=== PATIENT | female | born 1945 | race Caucasian/White ===

== ENCOUNTER 2024-08-14 23:24 | Inpatient (IN) | payer MEDICARE ==
[~2024-08-14] VITALS: Ht 147.3 cm; Wt 38.6 kg
[2024-08-15 00:08] LABS: BASOPHILS # (AUTO) 0.1 K/uL (0.0-0.2); BASOPHILS % (AUTO) 1.2 % (0.0-2.0); EOSINOPHILS % (AUTO) 12.7 % (0.0-6.0); HEMATOCRIT 33 % (33-45); HEMOGLOBIN 10.6 g/dL (11.5-14.8); LYMPHOCYTES # (AUTO) 2.9 K/uL (0.8-4.8); LYMPHOCYTES % (AUTO) 37.1 % (20.0-44.0); MEAN CORPUSCULAR HEMOGLOBIN 28 PG (26.0-33.0); MEAN CORPUSCULAR HGB CONC 32 g/dl (31.0-36.0); MEAN CORPUSCULAR VOLUME 86 fL (82-100); MONOCYTES # (AUTO) 0.6 K/uL (0.1-1.30); NEUTROPHILS # (AUTO) 3.2 K/uL (1.8-8.9); PLATELET COUNT (AUTO) 335 K/uL (150-450); RED BLOOD CELL COUNT(AUTO) 3.83 MIL/uL (4.0-5.2); WHITE BLOOD COUNT (AUTO) 7.7 K/uL (4.3-11.0)
[2024-08-15 00:15] LABS: CALCIUM, SERUM 8.8 mg/dL (8.5-10.1); CARBON DIOXIDE 31 mmol/L (21-32); CHLORIDE 103 mmol/L (98-107); CREATININE 0.6 mg/dL (0.6-1.3); GLUCOSE 98 mg/dL (74-106); SODIUM SERUM 137 mmol/L (136-145); UREA NITROGEN, BLOOD 23 mg/dL (7-18)
[2024-08-15 00:21] LABS: ALANINE AMINOTRANSFERASE 18 U/L (12-78); ALBUMIN 2.6 g/dL (3.4-5.0); ALKALINE PHOSPHATASE 54 U/L (46-116); ASPARTATE AMINOTRANSFERASE 15 U/L (15-37); BILIRUBIN,DIRECT 0.1 mg/dL (0.0-0.2); BILIRUBIN,TOTAL 0.2 mg/dL (0.2-1.0); LIPASE 49 U/L (16-77); TOTAL PROTEIN, SERUM 7.4 g/dL (6.4-8.2)
[2024-08-15 00:24] LABS: INR 1.03 (0.91-1.10); PARTIAL THROMBOPLASTIN TIME 29.8 SEC (24.3-34.3); PROTHROMBIN TIME 10.9 SECS (9.2-11.1)
[2024-08-15 00:40] LABS: APPEARANCE,URINE CLEAR (CLEAR); BILIRUBIN,URINE NEGATIVE (NEGATIVE); BLOOD, URINE TRACE-INTA Ery/uL (NEGATIVE); COLOR,URINE YELLOW (YELLOW); KETONES,URINE NEGATIVE (NEGATIVE); LEUKOCYTE ESTERASE ,URINE 3+ (NEGATIVE); NITRITE, URINE POSITIVE (NEGATIVE); PROTEIN,URINE NEGATIVE (NEGATIVE); UGLUCOSE NEGATIVE (NEGATIVE); UROBILINOGEN,URINE 0.2 EU/dL (0.2)
[2024-08-15] MEDS ORDERED: CEFTRIAXONE 1GM BAG (ER ONLY) 50 ML IV ONE (00:51)
[2024-08-15] MEDS: CEFTRIAXONE 1GM BAG (ER ONLY) 1 GM/50 ML PIGGYBACK IV ONE (00:53)
[2024-08-15] MEDS ORDERED: MINERAL OIL 133 ML (PYXIS) 1 EA ENEMA RC ONE (00:56)
[2024-08-15 01:14] LABS: ADD URINE CULTURE YES; BACTERIA,URINE 3+ /HPF (None Seen)
[2024-08-15] MEDS ORDERED: Z GUARD REMEDY 4 OZ OINT TP PRN (01:30)
[2024-08-15] MEDS ORDERED: ONDANSETRON HCL/PF 4 MG/2 ML VIAL IVP PRN (01:30)
[2024-08-15] MEDS: MINERAL OIL 133 ML (PYXIS) 1 EA ENEMA RC ONE (01:35)
[2024-08-15 03:00] VITALS: BP 114/62; TEMP 97.5; O2SAT 98
[2024-08-15] MEDS: IV NS 0.9% 1,000 ML IV ONE (04:43)
[2024-08-15 06:37] LABS: BASOPHILS % (AUTO) 0.5 % (0.0-2.0); EOSINOPHILS % (AUTO) 11.2 % (0.0-6.0); HEMATOCRIT 32 % (33-45); HEMOGLOBIN 10.4 g/dL (11.5-14.8); LYMPHOCYTES # (AUTO) 2.4 K/uL (0.8-4.8); LYMPHOCYTES % (AUTO) 27.5 % (20.0-44.0); MEAN CORPUSCULAR HEMOGLOBIN 28 PG (26.0-33.0); MEAN CORPUSCULAR HGB CONC 33 g/dl (31.0-36.0); MEAN CORPUSCULAR VOLUME 87 fL (82-100); MONOCYTES # (AUTO) 0.6 K/uL (0.1-1.30); MONOCYTES % (AUTO) 7.3 % (2.0-12.0); NEUTROPHILS # (AUTO) 4.6 K/uL (1.8-8.9); NEUTROPHILS % (AUTO) 53.5 % (43.0-81.0); PLATELET COUNT (AUTO) 334 K/uL (150-450); RED BLOOD CELL COUNT(AUTO) 3.71 MIL/uL (4.0-5.2); RED CELL DISTRIBUTION WIDTH 15.1 % (11.5-15.0); WHITE BLOOD COUNT (AUTO) 8.7 K/uL (4.3-11.0)
[2024-08-15] MEDS ORDERED: CHOL200038 PO (07:18)
[2024-08-15] MEDS ORDERED: CYAN25003 SL (07:18)
[2024-08-15] MEDS ORDERED: LEVO100T9 PO (07:18)
[2024-08-15] MEDS ORDERED: RISP0.5T65 PO (07:18)
[2024-08-15] MEDS ORDERED: MAGN400T26 PO (07:18)
[2024-08-15] MEDS ORDERED: ASCO-352 PO (07:18)
[2024-08-15] MEDS ORDERED: OMEG-130 PO (07:18)
[2024-08-15] MEDS ORDERED: MULT-594 PO (07:18)
[2024-08-15 07:28] LABS: CALCIUM, SERUM 8.9 mg/dL (8.5-10.1); CARBON DIOXIDE 32 mmol/L (21-32); CREATININE 0.6 mg/dL (0.6-1.3); GLUCOSE 84 mg/dL (74-106); MAGNESIUM 1.9 mg/dL (1.8-2.4); PHOSPHORUS 3.9 mg/dL (2.5-4.9); UREA NITROGEN, BLOOD 19 mg/dL (7-18)
[2024-08-15 08:24] VITALS: BP 95/77; TEMP 97.9; O2SAT 100
[2024-08-15] MEDS ORDERED: ENOX40DI SQ (08:24)
[2024-08-15] MEDS ORDERED: CRAN300T PO (08:24)
[2024-08-15] MEDS ORDERED: LACT10SO29 PO (08:24)
[2024-08-15] MEDS ORDERED: CALC500T53 PO (08:24)
[2024-08-15] MEDS ORDERED: ACET-73 PO (08:24)
[2024-08-15] MEDS ORDERED: BISA5TAB10 PO (08:24)
[2024-08-15] MEDS ORDERED: MULT-213 PO (08:24)
[2024-08-15] MEDS ORDERED: BISA10SU11 RC (08:24)
[2024-08-15] MEDS ORDERED: AMIN30LI66 PO (08:24)
[2024-08-15] MEDS ORDERED: ACID1TAB15 PO (08:24)
[2024-08-15] MEDS ORDERED: LACT-58 PO (08:24)
[2024-08-15] MEDS ORDERED: GLYC2TAB21 PO (08:24)
[2024-08-15] MEDS ORDERED: HYDR-4303 PO (08:24)
[2024-08-15 08:27] LABS: CHLORIDE 105 mmol/L (98-107); POTASSIUM 4.3 mmol/L (3.5-5.1); SODIUM SERUM 141 mmol/L (136-145)
[2024-08-15] MEDS ORDERED: ZINC220C6 PO (08:28)
[2024-08-15] MEDS: DAKINS QUARTER STRENGTH (0.125%) 480 ML BOTTLE TOP SCH (09:02)
[2024-08-15] MEDS: HEPARIN SODIUM, PORCINE 5000 UNITS/1 ML VIAL SQ SCH (09:54)
[2024-08-15] MEDS ORDERED: GLYCOPYRROLATE 1 MG TABLET PO PRN (10:00)
[2024-08-15] MEDS: DOCUSATE SODIUM LIQ 100 MG/10 ML UDC PO SCH (10:00)
[2024-08-15] MEDS: POLYETHYLENE GLYCOL 3350 17 GM POWD.PACK PO SCH (10:00)
[2024-08-15] MEDS: ACETAMINOPHEN 650 MG/SUPP.RECT RC PRN (13:27)
[2024-08-15] MEDS: LACTULOSE 10 G/15 ML UDC (PYXIS) PO PRN (14:52)
[2024-08-15 16:00] VITALS: BP 140/77; TEMP 98.1; O2SAT 99
[2024-08-15] MEDS: LACTOSE-FREE FOOD 237 ML BOTTLE PO SCH (17:00)
[2024-08-15 20:00] VITALS: BP 124/80; TEMP 98.1; O2SAT 99
[2024-08-16] MEDS: CEFTRIAXONE 1 G in IV D5W 50 ML IV SCH (00:34)
[2024-08-16] MEDS: LEVOTHYROXINE SODIUM 100 MCG TABLET PO SCH (07:56)
[2024-08-16] MEDS ORDERED: ENSURE ENLIVE 237 ML LIQUID (VANILLA) PO SCH (09:30)
[2024-08-16 09:57] LABS: BASOPHILS # (AUTO) 0.1 K/uL (0.0-0.2); EOSINOPHILS # (AUTO) 0.9 K/uL (0.0-0.7); EOSINOPHILS % (AUTO) 9.3 % (0.0-6.0); HEMATOCRIT 36 % (33-45); HEMOGLOBIN 11.4 g/dL (11.5-14.8); LYMPHOCYTES % (AUTO) 19.9 % (20.0-44.0); MEAN CORPUSCULAR HEMOGLOBIN 28 PG (26.0-33.0); MEAN CORPUSCULAR HGB CONC 32 g/dl (31.0-36.0); MEAN CORPUSCULAR VOLUME 87 fL (82-100); MONOCYTES # (AUTO) 0.6 K/uL (0.1-1.30); MONOCYTES % (AUTO) 6.1 % (2.0-12.0); NEUTROPHILS # (AUTO) 6.5 K/uL (1.8-8.9); NEUTROPHILS % (AUTO) 63.7 % (43.0-81.0); PLATELET COUNT (AUTO) 376 K/uL (150-450); RED CELL DISTRIBUTION WIDTH 15.4 % (11.5-15.0); WHITE BLOOD COUNT (AUTO) 10.2 K/uL (4.3-11.0)
[2024-08-16 10:08] LABS: CALCIUM, SERUM 8.7 mg/dL (8.5-10.1); CARBON DIOXIDE 29 mmol/L (21-32); CHLORIDE 107 mmol/L (98-107); CREATININE 0.7 mg/dL (0.6-1.3); GLUCOSE 161 mg/dL (74-106); POTASSIUM 4.1 mmol/L (3.5-5.1); SODIUM SERUM 140 mmol/L (136-145); UREA NITROGEN, BLOOD 16 mg/dL (7-18)
[2024-08-16] MEDS: ENSURE ENLIVE 237 ML LIQUID (VANILLA) PO SCH (12:11)
[2024-08-16 20:00] VITALS: BP 122/92; TEMP 99; O2SAT 93
[2024-08-16] MEDS: MUPIROCIN OINT 2% 22 GM TUBE NS SCH (21:09)
[2024-08-17 04:53] VITALS: BP 133/80
[2024-08-17 06:32] LABS: BASOPHILS # (AUTO) 0.1 K/uL (0.0-0.2); BASOPHILS % (AUTO) 0.9 % (0.0-2.0); EOSINOPHILS # (AUTO) 0.7 K/uL (0.0-0.7); EOSINOPHILS % (AUTO) 5.6 % (0.0-6.0); HEMATOCRIT 35 % (33-45); LYMPHOCYTES # (AUTO) 2.2 K/uL (0.8-4.8); LYMPHOCYTES % (AUTO) 17.3 % (20.0-44.0); MEAN CORPUSCULAR HEMOGLOBIN 27 PG (26.0-33.0); MEAN CORPUSCULAR HGB CONC 32 g/dl (31.0-36.0); MEAN CORPUSCULAR VOLUME 87 fL (82-100); MONOCYTES # (AUTO) 0.9 K/uL (0.1-1.30); MONOCYTES % (AUTO) 6.7 % (2.0-12.0); NEUTROPHILS # (AUTO) 9.1 K/uL (1.8-8.9); NEUTROPHILS % (AUTO) 69.5 % (43.0-81.0); PLATELET COUNT (AUTO) 371 K/uL (150-450); RED BLOOD CELL COUNT(AUTO) 4.03 MIL/uL (4.0-5.2); RED CELL DISTRIBUTION WIDTH 15.1 % (11.5-15.0)
[2024-08-17 06:40] LABS: CALCIUM, SERUM 8.8 mg/dL (8.5-10.1); CARBON DIOXIDE 24 mmol/L (21-32); CHLORIDE 104 mmol/L (98-107); CREATININE 0.7 mg/dL (0.6-1.3); GLUCOSE 116 mg/dL (74-106); POTASSIUM 4.2 mmol/L (3.5-5.1); SODIUM SERUM 138 mmol/L (136-145); UREA NITROGEN, BLOOD 23 mg/dL (7-18)
[2024-08-17 07:00] VITALS: BP 137/48; TEMP 98.1; O2SAT 98
[2024-08-17 16:00] VITALS: BP 122/110; TEMP 99.1; O2SAT 98
[2024-08-17 20:00] VITALS: BP 140/87; TEMP 98.4; O2SAT 97
[2024-08-18 08:00] VITALS: BP 130/80; TEMP 98.4
[2024-08-18] MEDS: CEFTRIAXONE 1 G in IV D5W 50 ML IV ONE (12:06)
== END 2024-08-18 16:50 | DRG 689 ==
LOC: ER 08-15 00:14 → TELE 08-15 02:19 → MED 08-15 03:06
PROVIDERS: ATTEND Internal Medicine
DX: N39.0 Urinary tract infection, site not specified (principal); G93.41 Metabolic encephalopathy; L89.324 Pressure ulcer of left buttock, stage 4; L89.154 Pressure ulcer of sacral region, stage 4; K59.00 Constipation, unspecified; D64.9 Anemia, unspecified; E03.9 Hypothyroidism, unspecified; I12.9 Hypertensive chronic kidney disease with stage 1 through stage 4 chronic kidney disease, or unspecified chronic kidney disease; N18.30 Chronic kidney disease, stage 3 unspecified
CPT/HCPCS: 36415; 71045-TC; 80048-TC; 80076-TC; 81001; 82962-TC; 83690-TC; 83735-TC; 84100-TC; 84443-TC; 84484-TC; 85025-TC; 85730-TC; 87081-TC; 87086-TC; 92526; 92611-TC; A4223; A6253; A6407; G0378; J0696; J1644; J7030; J7060

== ENCOUNTER 2025-01-27 07:49 | Inpatient (IN) | payer MEDICARE ==
[2025-01-27] VITALS (25 sets, daily range): BP systolic 94–223; BP diastolic 39–200; TEMP 98.2–99.1; O2SAT 97–100
[~2025-01-27] VITALS: Ht 157.5 cm; Wt 52.3 kg
[~2025-01-27 07:49] MED LIST: ACET-73 PO; ACID1TAB15 PO; AMIN30LI66 PO; ASCO-352 PO; BISA10SU11 RC; BISA5TAB10 PO; CALC500T53 PO; CHOL200038 PO; CRAN300T PO; CYAN25003 SL; ENOX40DI SQ; GLYC2TAB21 PO; HYDR-4303 PO; LACT-58 PO; LACT10SO29 PO; LEVO100T9 PO; MAGN400T26 PO; MULT-213 PO; OMEG-130 PO; ZINC220C6 PO
[2025-01-27] MEDS ORDERED: ACETAMINOPHEN 650 MG/SUPP.RECT RC ONE (08:07)
[2025-01-27] MEDS: ACETAMINOPHEN 650 MG/SUPP.RECT RC ONE (08:15)
[2025-01-27] MEDS: IV NS 0.9% 1,000 ML BAG IV ONE (08:15)
[2025-01-27] MEDS: CEFEPIME 1 GM in IV D5W 50 ML IV ONE (08:19)
[2025-01-27] MEDS: VANCOMYCIN 1 GM in IV D5W 250 ML IV ONE (08:36)
[2025-01-27 08:46] LABS: APPEARANCE,URINE BLOODY (CLEAR); COLOR,URINE RED (YELLOW)
[2025-01-27 08:50] LABS: BACTERIA,URINE Few /HPF (None Seen); RBC,URINE TOO NUMEROUS TO COUN /HPF (0-2); SQUAMOUS EPITHELIAL CELL,UR 0-2 /HPF (None Seen)
[2025-01-27 08:54] LABS: BASOPHILS # (AUTO) 0.1 K/uL (0.0-0.2); BASOPHILS % (AUTO) 0.3 % (0.0-2.0); HEMATOCRIT 46 % (33-45); HEMOGLOBIN 14.5 g/dL (11.5-14.8); LYMPHOCYTES # (AUTO) 1.9 K/uL (0.8-4.8); LYMPHOCYTES % (AUTO) 5.8 % (20.0-44.0); MEAN CORPUSCULAR HEMOGLOBIN 27 PG (26.0-33.0); MEAN CORPUSCULAR HGB CONC 32 g/dl (31.0-36.0); MEAN CORPUSCULAR VOLUME 85 fL (82-100); MONOCYTES # (AUTO) 2.1 K/uL (0.1-1.30); MONOCYTES % (AUTO) 6.4 % (2.0-12.0); NEUTROPHILS # (AUTO) 28.7 K/uL (1.8-8.9); NEUTROPHILS % (AUTO) 87.5 % (43.0-81.0); PLATELET COUNT (AUTO) 443 K/uL (150-450); RED BLOOD CELL COUNT(AUTO) 5.34 MIL/uL (4.0-5.2); RED CELL DISTRIBUTION WIDTH 15.2 % (11.5-15.0)
[2025-01-27 08:55] LABS: WHITE BLOOD COUNT (AUTO) 32.8 K/uL (4.3-11.0)
[2025-01-27] MEDS ORDERED: GABA300C PO (09:02)
[2025-01-27] MEDS ORDERED: POLY17PO4 PO (09:02)
[2025-01-27] MEDS ORDERED: COLL30OI TP (09:02)
[2025-01-27] MEDS ORDERED: ZINC56.713 TP (09:02)
[2025-01-27] MEDS ORDERED: CRAN425C6 PO (09:02)
[2025-01-27] MEDS ORDERED: VITS42.53 TP (09:02)
[2025-01-27] MEDS ORDERED: CRAN3875 PO (09:02)
[2025-01-27] MEDS ORDERED: ACET650S11 RC (09:02)
[2025-01-27] MEDS ORDERED: HYDR-4303 PO (09:02)
[2025-01-27] MEDS ORDERED: DOCU100C36 PO (09:02)
[2025-01-27] MEDS ORDERED: CALC-261 PO (09:02)
[2025-01-27 09:06] LABS: ALANINE AMINOTRANSFERASE 9 U/L (12-78); ALBUMIN 2.6 g/dL (3.4-5.0); ALKALINE PHOSPHATASE 65 U/L (46-116); ASPARTATE AMINOTRANSFERASE 17 U/L (15-37); BILIRUBIN,DIRECT 0.1 mg/dL (0.0-0.2); BILIRUBIN,TOTAL 0.4 mg/dL (0.2-1.0); CALCIUM, SERUM 9.3 mg/dL (8.5-10.1); CARBON DIOXIDE 19 mmol/L (21-32); CHLORIDE 102 mmol/L (98-107); CREATININE 2.6 mg/dL (0.6-1.3); GLUCOSE 176 mg/dL (74-106); SODIUM SERUM 135 mmol/L (136-145); TOTAL PROTEIN, SERUM 8.1 g/dL (6.4-8.2); UREA NITROGEN, BLOOD 58 mg/dL (7-18)
[2025-01-27 09:10] LABS: LACTIC ACID 4.1 mmol/L (0.4-2.0); POTASSIUM 7.4 mmol/L (3.5-5.1)
[2025-01-27 09:42] LABS: LYMPHOCYTES % (MANUAL) 9 % (16-48); MONOCYTES % (MANUAL) 3 % (0-11.0); NEUTROPHILS % (MANUAL) 88 (42-76); PLATELET ESTIMATE ADEQUATE
[2025-01-27] MEDS ORDERED: SODIUM BICARBONATE SYR 50 MEQ/50 ML DISP.SYRIN ONE (09:48)
[2025-01-27] MEDS: SODIUM BICARBONATE SYR 50 MEQ/50 ML DISP.SYRIN IV ONE (09:55)
[2025-01-27] MEDS: Calcium Gluconate 1GM/10ML 4.65 MEQ in IV NS 0.9% 100 ML IV ONE (10:02)
[2025-01-27 10:16] LABS: INR > 10.00 (0.91-1.10)
[2025-01-27 10:17] LABS: PARTIAL THROMBOPLASTIN TIME > 170.0 SEC (24.3-34.3); PROTHROMBIN TIME > 80.0 SECS (9.2-11.1)
[2025-01-27] MEDS: SODIUM ZIRCONIUM CYCLOSILICATE 10 GM POWD.PACK PO ONE (10:27)
[2025-01-27] MEDS ORDERED: ONDANSETRON HCL/PF 4 MG/2 ML VIAL IVP PRN (11:30)
[2025-01-27] MEDS: PHYTONADIONE IV ONE (11:50)
[2025-01-27] MEDS: NS 0.9% IV ONE (11:50)
[2025-01-27] MEDS ORDERED: PANTOPRAZOLE 40 MG VIAL ONE (12:10)
[2025-01-27] MEDS: PANTOPRAZOLE 40 MG VIAL IV SCH (12:14)
[2025-01-27] MEDS: Sodium Bicarbonate 100 MEQ in IV D5/0.45 NACL 1,000 ML IV PRN (12:20)
[2025-01-27 14:55] LABS: ALBUMIN 2.2 g/dL (3.4-5.0); BILIRUBIN,TOTAL 0.4 mg/dL (0.2-1.0); CALCIUM, SERUM 8.8 mg/dL (8.5-10.1); CREATININE 2.1 mg/dL (0.6-1.3); POTASSIUM 5.2 mmol/L (3.5-5.1); TOTAL PROTEIN, SERUM 6.9 g/dL (6.4-8.2)
[2025-01-27 21:49] LABS: INR 1.19 (0.91-1.10); PARTIAL THROMBOPLASTIN TIME 33.6 SEC (24.3-34.3); PROTHROMBIN TIME 12.5 SECS (9.2-11.1)
[2025-01-27 21:53] LABS: D-DIMER 7.84 mg/L(FEU (0.17-0.50)
[2025-01-27] MEDS ORDERED: CEFEPIME 1 GM VIAL ONE (22:07)
[2025-01-27] MEDS: METRONIDAZOLE 500MG/ NS 100ML 500 MG in PREMIX 1 EA IV SCH (22:09)
[2025-01-27] MEDS: METRONIDAZOLE 500MG/ NS 100ML 100 ML IV ONE (22:13)
[2025-01-27] MEDS: CEFEPIME 1 GM in IV D5W 50 ML IV SCH (23:31)
[2025-01-27] MEDS: ACETAMINOPHEN 650 MG/SUPP.RECT RC PRN (23:40)
[2025-01-28] VITALS (48 sets, daily range): BP systolic 83–209; BP diastolic 33–194; TEMP 97.9–100.3; O2SAT 96–100
[2025-01-28 04:33] LABS: BASOPHILS # (AUTO) 0.1 K/uL (0.0-0.2); BASOPHILS % (AUTO) 0.3 % (0.0-2.0); EOSINOPHILS # (AUTO) 0.3 K/uL (0.0-0.7); EOSINOPHILS % (AUTO) 1.5 % (0.0-6.0); HEMATOCRIT 33 % (33-45); HEMOGLOBIN 10.5 g/dL (11.5-14.8); LYMPHOCYTES # (AUTO) 1.7 K/uL (0.8-4.8); LYMPHOCYTES % (AUTO) 8.9 % (20.0-44.0); MEAN CORPUSCULAR HEMOGLOBIN 27 PG (26.0-33.0); MEAN CORPUSCULAR HGB CONC 32 g/dl (31.0-36.0); MEAN CORPUSCULAR VOLUME 84 fL (82-100); MONOCYTES % (AUTO) 5.3 % (2.0-12.0); NEUTROPHILS # (AUTO) 15.8 K/uL (1.8-8.9); PLATELET COUNT (AUTO) 328 K/uL (150-450); RED BLOOD CELL COUNT(AUTO) 3.92 MIL/uL (4.0-5.2); RED CELL DISTRIBUTION WIDTH 14.9 % (11.5-15.0); WHITE BLOOD COUNT (AUTO) 18.8 K/uL (4.3-11.0)
[2025-01-28 04:41] LABS: APPEARANCE,URINE CLOUDY (CLEAR); BILIRUBIN,URINE NEGATIVE (NEGATIVE); BLOOD, URINE 3+ Ery/uL (NEGATIVE); COLOR,URINE DARK YELLOW (YELLOW); KETONES,URINE NEGATIVE (NEGATIVE); LEUKOCYTE ESTERASE ,URINE 2+ (NEGATIVE); NITRITE, URINE POSITIVE (NEGATIVE); PH,URINE 8.5 (5.0-8.0); PROTEIN,URINE 3+ mg/dl (NEGATIVE); UGLUCOSE NEGATIVE (NEGATIVE); UROBILINOGEN,URINE 0.2 EU/dL (0.2)
[2025-01-28 04:57] LABS: LACTIC ACID 1.6 mmol/L (0.4-2.0)
[2025-01-28 04:58] LABS: CALCIUM, SERUM 8.1 mg/dL (8.5-10.1); CREATININE 1.3 mg/dL (0.6-1.3); MAGNESIUM 2.1 mg/dL (1.8-2.4); PHOSPHORUS 3.6 mg/dL (2.5-4.9); POTASSIUM 3.9 mmol/L (3.5-5.1)
[2025-01-28] MEDS: SODIUM BICARBONATE SYR 50 MEQ/50 ML DISP.SYRIN ONE (05:06)
[2025-01-28 05:09] LABS: ADD URINE CULTURE YES; BACTERIA,URINE Moderate /HPF (None Seen); RBC,URINE 21-50 /HPF (0-2); SQUAMOUS EPITHELIAL CELL,UR Rare /HPF (None Seen); WBC,URINE 21-50 /HPF (0-3)
[2025-01-28 05:10] LABS: EOSINOPHIL,URINE None Seen
[2025-01-28] MEDS ORDERED: METRONIDAZOLE 500MG/ NS 100ML 100 ML IV ONE (05:14)
[2025-01-28 06:41] LABS: ABG BASE EXCESS 5.5 mmol/L (-2.0-3.0); ABG OXYGEN SATURATION 95.7 % (94.0-98.0); ABG PCO2 35.1 mmHg (32.0-45.0); ABG PH 7.525 (7.350-7.450); ABG PO2 73.8 mmHg (83.0-108.0); ABG TOTAL HEMOGLOBIN 11.2 G/dL (12.0-16.0); COHb 0.2 % (0.5-1.5); O2Hb 95.5 % (94.0-97.0); SITE, ABG RIGHT RADIAL
[2025-01-28] MEDS: IV D5/0.45 NACL 1,000 ML IV PRN (08:03)
[2025-01-28] MEDS: CEFEPIME 2 GM in IV D5W 100 ML IV SCH (10:11)
[2025-01-28] MEDS: THERAHONEY GEL 1.5 OZ TUBE TP SCH (10:24)
[2025-01-28] MEDS: VANCOMYCIN 750 MG in IV D5W 250 ML IV SCH (14:38)
[2025-01-28] MEDS: MORPHINE SULFATE INJ 2 MG/ML DISP.SYRIN IV PRN (18:06)
[2025-01-28] MEDS ORDERED: VANCOMYCIN 750 MG in IV D5W 250 ML IV SCH (20:00)
[2025-01-29] VITALS (11 sets, daily range): BP systolic 103–144; BP diastolic 49–77; TEMP 98.8–102.2; O2SAT 98–100
[2025-01-29 03:53] LABS: BASOPHILS % (AUTO) 0.3 % (0.0-2.0); EOSINOPHILS # (AUTO) 0.5 K/uL (0.0-0.7); EOSINOPHILS % (AUTO) 3.6 % (0.0-6.0); HEMATOCRIT 26 % (33-45); HEMOGLOBIN 8.4 g/dL (11.5-14.8); LYMPHOCYTES # (AUTO) 1.3 K/uL (0.8-4.8); LYMPHOCYTES % (AUTO) 8.6 % (20.0-44.0); MEAN CORPUSCULAR HEMOGLOBIN 28 PG (26.0-33.0); MEAN CORPUSCULAR HGB CONC 33 g/dl (31.0-36.0); MEAN CORPUSCULAR VOLUME 84 fL (82-100); MONOCYTES # (AUTO) 0.9 K/uL (0.1-1.30); MONOCYTES % (AUTO) 6.2 % (2.0-12.0); NEUTROPHILS % (AUTO) 81.3 % (43.0-81.0); PLATELET COUNT (AUTO) 271 K/uL (150-450); RED BLOOD CELL COUNT(AUTO) 3.07 MIL/uL (4.0-5.2); RED CELL DISTRIBUTION WIDTH 14.5 % (11.5-15.0); WHITE BLOOD COUNT (AUTO) 14.8 K/uL (4.3-11.0)
[2025-01-29 04:02] LABS: ALANINE AMINOTRANSFERASE 8 U/L (12-78); ALKALINE PHOSPHATASE 46 U/L (46-116); ASPARTATE AMINOTRANSFERASE 13 U/L (15-37); BILIRUBIN,TOTAL 0.6 mg/dL (0.2-1.0); CARBON DIOXIDE 26 mmol/L (21-32); CHLORIDE 103 mmol/L (98-107); CREATININE 0.8 mg/dL (0.6-1.3); GLUCOSE 114 mg/dL (74-106); PHOSPHORUS 2.1 mg/dL (2.5-4.9); POTASSIUM 3.1 mmol/L (3.5-5.1); SODIUM SERUM 138 mmol/L (136-145); TOTAL PROTEIN, SERUM 6.1 g/dL (6.4-8.2); UREA NITROGEN, BLOOD 29 mg/dL (7-18)
[2025-01-29 05:09] LABS: PTH, INTACT 65 pg/mL (15-65)
[2025-01-29] MEDS: POTASSIUM CL. PREMIX PERIPHER. 50 ML IV SCH (08:46)
[2025-01-29] MEDS: K PHOS NEUTRAL 250 MG TABLET PO ONE (15:23)
[2025-01-29] MEDS: ACETAMINOPHEN 325 MG TABLET PO PRN (16:31)
[2025-01-29] MEDS ORDERED: MEROPENEM 500 MG in IV NS 0.9% 50 ML IV SCH (22:00)
[2025-01-29] MEDS ORDERED: MEROPENEM 500 MG VIAL IV ONE (22:06)
[2025-01-29] MEDS: MEROPENEM 500 MG in IV NS 0.9% 50 ML IV ONE (22:18)
[2025-01-29] MEDS ORDERED: MEROPENEM 1 G in IV NS 0.9% 100 ML IV ONE (22:30)
[2025-01-30] VITALS: BP 122/71; TEMP 99.1; O2SAT 99
[2025-01-30] MEDS: VANCOMYCIN 750 MG in IV D5W 250 ML IV SCH (02:27)
[2025-01-30 04:00] VITALS: BP 143/72; TEMP 100.1; O2SAT 98
[2025-01-30 07:13] LABS: ALANINE AMINOTRANSFERASE 13 U/L (12-78); ALBUMIN 2.1 g/dL (3.4-5.0); ALKALINE PHOSPHATASE 47 U/L (46-116); ASPARTATE AMINOTRANSFERASE 13 U/L (15-37); BILIRUBIN,TOTAL 0.5 mg/dL (0.2-1.0); CARBON DIOXIDE 25 mmol/L (21-32); CHLORIDE 104 mmol/L (98-107); CREATININE 0.9 mg/dL (0.6-1.3); GLUCOSE 124 mg/dL (74-106); MAGNESIUM 1.6 mg/dL (1.8-2.4); PHOSPHORUS 2.4 mg/dL (2.5-4.9); POTASSIUM 3.7 mmol/L (3.5-5.1); SODIUM SERUM 136 mmol/L (136-145); TOTAL PROTEIN, SERUM 6.2 g/dL (6.4-8.2); UREA NITROGEN, BLOOD 18 mg/dL (7-18)
[2025-01-30 07:24] LABS: BASOPHILS # (AUTO) 0.1 K/uL (0.0-0.2); BASOPHILS % (AUTO) 0.4 % (0.0-2.0); EOSINOPHILS # (AUTO) 0.5 K/uL (0.0-0.7); EOSINOPHILS % (AUTO) 3.8 % (0.0-6.0); HEMATOCRIT 28 % (33-45); HEMOGLOBIN 8.9 g/dL (11.5-14.8); LYMPHOCYTES # (AUTO) 1.4 K/uL (0.8-4.8); LYMPHOCYTES % (AUTO) 9.9 % (20.0-44.0); MEAN CORPUSCULAR HEMOGLOBIN 27 PG (26.0-33.0); MEAN CORPUSCULAR HGB CONC 32 g/dl (31.0-36.0); MEAN CORPUSCULAR VOLUME 84 fL (82-100); MONOCYTES # (AUTO) 1.4 K/uL (0.1-1.30); NEUTROPHILS # (AUTO) 10.5 K/uL (1.8-8.9); NEUTROPHILS % (AUTO) 75.9 % (43.0-81.0); PLATELET COUNT (AUTO) 309 K/uL (150-450); RED BLOOD CELL COUNT(AUTO) 3.29 MIL/uL (4.0-5.2); RED CELL DISTRIBUTION WIDTH 14.7 % (11.5-15.0); WHITE BLOOD COUNT (AUTO) 13.9 K/uL (4.3-11.0)
[2025-01-30 08:00] VITALS: BP 117/68; TEMP 98.8; O2SAT 100
[2025-01-30] MEDS: MEROPENEM 1 G in IV NS 0.9% 100 ML IV SCH (08:08)
[2025-01-30] MEDS: Magnesium 1GM/D5W 100ML PREMIX 100 ML IV SCH (08:44)
[2025-01-30 12:00] VITALS: BP 125/73; TEMP 98.2; O2SAT 99
[2025-01-30] MEDS: K PHOS NEUTRAL 250 MG TABLET PO ONE (15:30)
[2025-01-30 16:00] VITALS: BP 110/54; TEMP 99.9; O2SAT 93
[2025-01-30 20:00] VITALS: BP 107/54; TEMP 101; O2SAT 97
[2025-01-31] VITALS: BP 105/66; TEMP 99.3; O2SAT 98
[2025-01-31 04:00] VITALS: BP 117/70; TEMP 99; O2SAT 99
[2025-01-31 07:16] LABS: CALCIUM, SERUM 8.1 mg/dL (8.5-10.1); CARBON DIOXIDE 26 mmol/L (21-32); CHLORIDE 104 mmol/L (98-107); CREATININE 0.9 mg/dL (0.6-1.3); GLUCOSE 130 mg/dL (74-106); PHOSPHORUS 2.1 mg/dL (2.5-4.9); POTASSIUM 3.8 mmol/L (3.5-5.1); SODIUM SERUM 135 mmol/L (136-145); UREA NITROGEN, BLOOD 15 mg/dL (7-18)
[2025-01-31 08:00] VITALS: BP 115/58; TEMP 98.2; O2SAT 98
[2025-01-31] MEDS: PANTOPRAZOLE 40 MG TABLET.DR PO SCH (08:42)
[2025-01-31] MEDS: NEUTRA PHOS 1 POWD.PACKET PO SCH (09:44)
[2025-01-31] MEDS: MUPIROCIN OINT 2% 22 GM TUBE NS SCH (09:46)
[2025-01-31 16:00] VITALS: BP 124/61; TEMP 98; O2SAT 98
[2025-01-31 16:20] LABS: BASOPHILS % (AUTO) 0.3 % (0.0-2.0); EOSINOPHILS # (AUTO) 0.5 K/uL (0.0-0.7); EOSINOPHILS % (AUTO) 3.2 % (0.0-6.0); HEMATOCRIT 29 % (33-45); HEMOGLOBIN 9.6 g/dL (11.5-14.8); LYMPHOCYTES # (AUTO) 1.6 K/uL (0.8-4.8); LYMPHOCYTES % (AUTO) 10.2 % (20.0-44.0); MEAN CORPUSCULAR HEMOGLOBIN 28 PG (26.0-33.0); MEAN CORPUSCULAR HGB CONC 33 g/dl (31.0-36.0); MEAN CORPUSCULAR VOLUME 84 fL (82-100); MONOCYTES # (AUTO) 1.7 K/uL (0.1-1.30); MONOCYTES % (AUTO) 10.8 % (2.0-12.0); NEUTROPHILS # (AUTO) 11.8 K/uL (1.8-8.9); NEUTROPHILS % (AUTO) 75.5 % (43.0-81.0); PLATELET COUNT (AUTO) 400 K/uL (150-450); RED BLOOD CELL COUNT(AUTO) 3.47 MIL/uL (4.0-5.2); RED CELL DISTRIBUTION WIDTH 15.3 % (11.5-15.0); WHITE BLOOD COUNT (AUTO) 15.7 K/uL (4.3-11.0)
[2025-01-31 20:00] VITALS: BP 108/54; TEMP 100; O2SAT 100
[2025-02-01 00:50] VITALS: BP 126/78; TEMP 98.8; O2SAT 99
[2025-02-01 06:00] LABS: BASOPHILS % (AUTO) 0.3 % (0.0-2.0); EOSINOPHILS # (AUTO) 0.5 K/uL (0.0-0.7); EOSINOPHILS % (AUTO) 3.2 % (0.0-6.0); HEMATOCRIT 30 % (33-45); HEMOGLOBIN 9.9 g/dL (11.5-14.8); LYMPHOCYTES # (AUTO) 1.9 K/uL (0.8-4.8); LYMPHOCYTES % (AUTO) 11.5 % (20.0-44.0); MEAN CORPUSCULAR HEMOGLOBIN 28 PG (26.0-33.0); MEAN CORPUSCULAR HGB CONC 33 g/dl (31.0-36.0); MEAN CORPUSCULAR VOLUME 84 fL (82-100); MONOCYTES # (AUTO) 1.7 K/uL (0.1-1.30); MONOCYTES % (AUTO) 10.3 % (2.0-12.0); NEUTROPHILS # (AUTO) 12.1 K/uL (1.8-8.9); NEUTROPHILS % (AUTO) 74.7 % (43.0-81.0); PLATELET COUNT (AUTO) 405 K/uL (150-450); RED BLOOD CELL COUNT(AUTO) 3.57 MIL/uL (4.0-5.2); WHITE BLOOD COUNT (AUTO) 16.2 K/uL (4.3-11.0)
[2025-02-01 06:26] LABS: CALCIUM, SERUM 8.1 mg/dL (8.5-10.1); CREATININE 0.8 mg/dL (0.6-1.3); MAGNESIUM 1.8 mg/dL (1.8-2.4); PHOSPHORUS 2.6 mg/dL (2.5-4.9); POTASSIUM 4.3 mmol/L (3.5-5.1)
[2025-02-01 08:00] VITALS: BP 125/78; TEMP 98.4; O2SAT 100
[2025-02-01 16:00] VITALS: BP 134/66; TEMP 98.6; O2SAT 99
[2025-02-01] MEDS: METRONIDAZOLE 500MG/ NS 100ML 500 MG in PREMIX 1 EA IV SCH (20:23)
[2025-02-02 01:02] VITALS: BP 122/56; TEMP 101; O2SAT 97
[2025-02-02 04:00] VITALS: BP 142/64; TEMP 97.5; O2SAT 100
[2025-02-02 06:22] LABS: CALCIUM, SERUM 8.2 mg/dL (8.5-10.1); CREATININE 0.7 mg/dL (0.6-1.3); POTASSIUM 4.1 mmol/L (3.5-5.1)
[2025-02-02] MEDS: FLUCONAZOLE (100 MG) 100 MG TABLET PO SCH (10:14)
[2025-02-02 12:00] VITALS: BP 119/65; TEMP 97.9; O2SAT 100
[2025-02-02 13:52] LABS: BASOPHILS # (AUTO) 0.1 K/uL (0.0-0.2); BASOPHILS % (AUTO) 0.5 % (0.0-2.0); EOSINOPHILS # (AUTO) 0.7 K/uL (0.0-0.7); EOSINOPHILS % (AUTO) 4.9 % (0.0-6.0); HEMATOCRIT 29 % (33-45); HEMOGLOBIN 9.4 g/dL (11.5-14.8); LYMPHOCYTES # (AUTO) 1.8 K/uL (0.8-4.8); LYMPHOCYTES % (AUTO) 13.3 % (20.0-44.0); MEAN CORPUSCULAR HEMOGLOBIN 27 PG (26.0-33.0); MEAN CORPUSCULAR HGB CONC 33 g/dl (31.0-36.0); MEAN CORPUSCULAR VOLUME 84 fL (82-100); MONOCYTES % (AUTO) 7.5 % (2.0-12.0); NEUTROPHILS # (AUTO) 9.9 K/uL (1.8-8.9); NEUTROPHILS % (AUTO) 73.8 % (43.0-81.0); PLATELET COUNT (AUTO) 500 K/uL (150-450); RED BLOOD CELL COUNT(AUTO) 3.46 MIL/uL (4.0-5.2); RED CELL DISTRIBUTION WIDTH 15.1 % (11.5-15.0); WHITE BLOOD COUNT (AUTO) 13.4 K/uL (4.3-11.0)
[2025-02-02] MEDS: VANCOMYCIN 750 MG in IV D5W 250 ML IV SCH (14:58)
[2025-02-02 20:00] VITALS: BP 138/74; TEMP 99; O2SAT 98
[2025-02-03 04:00] VITALS: BP 107/72; TEMP 99.2; O2SAT 98
[2025-02-03 06:34] LABS: BASOPHILS # (AUTO) 0.1 K/uL (0.0-0.2); BASOPHILS % (AUTO) 0.7 % (0.0-2.0); EOSINOPHILS # (AUTO) 0.6 K/uL (0.0-0.7); EOSINOPHILS % (AUTO) 4.6 % (0.0-6.0); HEMATOCRIT 29 % (33-45); HEMOGLOBIN 9.3 g/dL (11.5-14.8); LYMPHOCYTES # (AUTO) 1.9 K/uL (0.8-4.8); LYMPHOCYTES % (AUTO) 14.8 % (20.0-44.0); MEAN CORPUSCULAR HEMOGLOBIN 27 PG (26.0-33.0); MEAN CORPUSCULAR HGB CONC 32 g/dl (31.0-36.0); MEAN CORPUSCULAR VOLUME 82 fL (82-100); MONOCYTES # (AUTO) 1.2 K/uL (0.1-1.30); MONOCYTES % (AUTO) 9.9 % (2.0-12.0); NEUTROPHILS # (AUTO) 8.8 K/uL (1.8-8.9); PLATELET COUNT (AUTO) 534 K/uL (150-450); RED CELL DISTRIBUTION WIDTH 14.9 % (11.5-15.0); WHITE BLOOD COUNT (AUTO) 12.5 K/uL (4.3-11.0)
[2025-02-03 06:41] LABS: CALCIUM, SERUM 8.7 mg/dL (8.5-10.1); CREATININE 0.9 mg/dL (0.6-1.3); MAGNESIUM 1.8 mg/dL (1.8-2.4); PHOSPHORUS 2.4 mg/dL (2.5-4.9); POTASSIUM 4.3 mmol/L (3.5-5.1)
[2025-02-03 08:00] VITALS: BP 105/73; TEMP 98; O2SAT 94
[2025-02-03 16:00] VITALS: BP 105/73; TEMP 98.5; O2SAT 94
[2025-02-03 16:07] LABS: *SPE A/G RATIO 0.7 (0.7-1.7); *SPE ALBUMIN 2.5 g/dL (2.9-4.4); *SPE ALPHA-1-GLOBULIN 0.5 g/dL (0.0-0.4); *SPE GLOBULIN, TOTAL 3.4 g/dL (2.2-3.9); *SPE M-SPIKE Not Observed g/dL (Not Observed); *SPE PROTEIN TOTAL 5.9 g/dL (6.0-8.5)
[2025-02-03] MEDS: K PHOS NEUTRAL 250 MG TABLET PO ONE (17:32)
[2025-02-03 20:00] VITALS: BP 101/46; TEMP 99.3; O2SAT 99
[2025-02-04 04:00] VITALS: BP 93/80; TEMP 98.9; O2SAT 99
[2025-02-04 06:50] LABS: BASOPHILS % (AUTO) 0.4 % (0.0-2.0); EOSINOPHILS # (AUTO) 0.6 K/uL (0.0-0.7); EOSINOPHILS % (AUTO) 5.4 % (0.0-6.0); HEMATOCRIT 30 % (33-45); HEMOGLOBIN 9.5 g/dL (11.5-14.8); LYMPHOCYTES % (AUTO) 19.3 % (20.0-44.0); MEAN CORPUSCULAR HEMOGLOBIN 26 PG (26.0-33.0); MEAN CORPUSCULAR HGB CONC 32 g/dl (31.0-36.0); MEAN CORPUSCULAR VOLUME 83 fL (82-100); MONOCYTES % (AUTO) 9.9 % (2.0-12.0); NEUTROPHILS # (AUTO) 6.9 K/uL (1.8-8.9); PLATELET COUNT (AUTO) 581 K/uL (150-450); RED CELL DISTRIBUTION WIDTH 15.1 % (11.5-15.0); WHITE BLOOD COUNT (AUTO) 10.6 K/uL (4.3-11.0)
[2025-02-04 07:25] LABS: CREATININE 0.9 mg/dL (0.6-1.3); MAGNESIUM 1.9 mg/dL (1.8-2.4); PHOSPHORUS 3.2 mg/dL (2.5-4.9); POTASSIUM 4.3 mmol/L (3.5-5.1)
[2025-02-04] MEDS ORDERED: MUPI22OI7 NS (10:34)
[2025-02-04] MEDS ORDERED: MERO1VIA23 IV (10:34)
[2025-02-04] MEDS ORDERED: FLUC100T8 PO (10:43)
[2025-02-04 12:02] VITALS: BP 108/53; TEMP 98; O2SAT 100
== END 2025-02-04 15:11 | DRG 853 ==
LOC: ER 07:52 → TELE-TD 11:36 → ICU 14:30 → TELE1 01-29 06:45 → MEDSG1 01-31 21:02
PROVIDERS: ADMIT Nurse Practitioner Acute Care; ATTEND Nurse Practitioner Family
PROC: 0KBP0ZZ Excision of Left Hip Muscle, Open Approach (ICD-10-PCS; principal; 2025-01-29)
PROC: 0JB70ZZ Excision of Back Subcutaneous Tissue and Fascia, Open Approach (ICD-10-PCS; 2025-01-29)
PROC: 0KBP0ZZ Excision of Left Hip Muscle, Open Approach (ICD-10-PCS; 2025-02-04)
DX: A41.50 Gram-negative sepsis, unspecified (principal); G93.41 Metabolic encephalopathy; I21.A1 Myocardial infarction type 2; L89.224 Pressure ulcer of left hip, stage 4; L89.153 Pressure ulcer of sacral region, stage 3; J96.01 Acute respiratory failure with hypoxia; R65.21 Severe sepsis with septic shock; N17.0 Acute kidney failure with tubular necrosis; J15.9 Unspecified bacterial pneumonia; J69.0 Pneumonitis due to inhalation of food and vomit; D68.59 Other primary thrombophilia; E44.0 Moderate protein-calorie malnutrition; E87.1 Hypo-osmolality and hyponatremia; E87.20 Acidosis, unspecified; N39.0 Urinary tract infection, site not specified; E87.4 Mixed disorder of acid-base balance; Z16.12 Extended spectrum beta lactamase (ESBL) resistance; D68.4 Acquired coagulation factor deficiency; I12.9 Hypertensive chronic kidney disease with stage 1 through stage 4 chronic kidney disease, or unspecified chronic kidney disease; N18.30 Chronic kidney disease, stage 3 unspecified; B96.4 Proteus (mirabilis) (morganii) as the cause of diseases classified elsewhere; D64.9 Anemia, unspecified; E03.9 Hypothyroidism, unspecified; E86.9 Volume depletion, unspecified; E88.09 Other disorders of plasma-protein metabolism, not elsewhere classified; L89.621 Pressure ulcer of left heel, stage 1; M89.8X9 Other specified disorders of bone, unspecified site; E83.9 Disorder of mineral metabolism, unspecified; Z66 Do not resuscitate; Z74.01 Bed confinement status; Z86.73 Personal history of transient ischemic attack (TIA), and cerebral infarction without residual deficits; Z87.440 Personal history of urinary (tract) infections; E87.5 Hyperkalemia; L89.116 Pressure-induced deep tissue damage of right upper back; R23.8 Other skin changes; K52.9 Noninfective gastroenteritis and colitis, unspecified; R31.0 Gross hematuria; Z79.899 Other long term (current) drug therapy; L89.611 Pressure ulcer of right heel, stage 1; M24.562 Contracture, left knee; M24.561 Contracture, right knee; M24.571 Contracture, right ankle; M24.572 Contracture, left ankle; G30.9 Alzheimer's disease, unspecified; F02.80 Dementia in other diseases classified elsewhere, unspecified severity, without behavioral disturbance, psychotic disturbance, mood disturbance, and anxiety; Z22.322 Carrier or suspected carrier of Methicillin resistant Staphylococcus aureus; L98.8 Other specified disorders of the skin and subcutaneous tissue
CPT/HCPCS: 36415; 71045-TC; 76770-TC; 80048-TC; 80053-TC; 80076-TC; 80202-TC; 81001; 82550-TC; 83605-TC; 83735-TC; 83970; 84100-TC; 84155; 84165; 84439-TC; 84443-TC; 84484-TC; 85025-TC; 85396; 85730-TC; 87040-TC; 87081-TC; 87086-TC; 87186-TC; 92526; 92611-TC; 93307-TC; A4216; A4223; A6213; A6253; A6403; G0378; J0612; J0692; J2185; J2270; J2470; J3370; J3371; J3430; J3475; J3480; J3490; J7030; J7040; J7050; J7060